=== PATIENT | female | born 1965 | race Caucasian/White ===

== ENCOUNTER 2022-06-24 13:21 | Inpatient (IN) | payer OTHER ==
[2022-06-24 13:49] VITALS: BMI 21.9
[2022-06-24] MEDS ORDERED: ONDANSETRON *ODT* 4 MG TABLET SL PRN (18:12)
[2022-06-24] MEDS ORDERED: P-EPHED 60MG/TRIPROLIDI 2.5MG TABLET PO PRN (18:12)
[2022-06-24] MEDS ORDERED: hydrOXYzine PAMOATE 25 MG CAPSULE (FP) PO PRN (18:12)
[2022-06-24] MEDS ORDERED: LOPERAMIDE HCL 2 MG CAPSULE PO PRN (18:12)
[2022-06-24] MEDS ORDERED: MAG HYDROX/AL HYDROX/SIMETH 30 ML UNIT-DOSE CUP PO PRN (18:12)
[2022-06-24] MEDS ORDERED: ACETAMINOPHEN 325 MG TABLET (FP) PO PRN (18:12)
[2022-06-24] MEDS ORDERED: IBUPROFEN 400 MG TABLET (FP) PO PRN (18:12)
[2022-06-24] MEDS ORDERED: NALOXONE HCL (KLOXXADO) 8 MG SPRAY NS PRN (18:12)
[2022-06-24] MEDS ORDERED: DICYCLOMINE HCL 10 MG CAPSULE PO PRN (18:12)
[2022-06-24] MEDS ORDERED: NICOTINE 10 MG CARTRIDGE (INHALER) IH PRN (18:12)
[2022-06-24] MEDS ORDERED: guaiFENesin 600 MG TABLET.ER (FP) PO PRN (18:12)
[2022-06-24] MEDS ORDERED: METHOCARBAMOL 500 MG TABLET PO PRN (18:12)
[2022-06-24] MEDS ORDERED: NICOTINE POLACRILEX 2 MG GUM BUC PRN (18:12)
[2022-06-24] MEDS ORDERED: BENZOCAINE/MENTHOL (CHLORASEPTIC ) LOZENGE MM PRN (18:12)
[2022-06-24] MEDS ORDERED: NALOXONE HCL 0.4 MG/ML VIAL IM PRN (18:12)
[2022-06-24] MEDS ORDERED: BENZONATATE 200 MG CAPSULE PO PRN (18:12)
[2022-06-24] MEDS ORDERED: MAGNESIUM HYDROX 2400MG/30ML ORAL SUSPENSION 30 ML CUP PO PRN (18:12)
[2022-06-24] MEDS ORDERED: POLYETHYLENE GLYCOL (HEALTHYLAX) 3350 17 GM PACKET PO PRN (18:12)
[2022-06-24] MEDS ORDERED: hydrOXYzine PAMOATE 50 MG CAPSULE (FP) PO ONE (18:17)
[2022-06-24] MEDS ORDERED: hydrOXYzine PAMOATE 25 MG CAPSULE (FP) PO ONE (18:18)
[2022-06-24] MEDS: IBUPROFEN 600 MG TABLET (FP) PO PRN (20:24)
[2022-06-24] MEDS ORDERED: MELATONIN 5 MG TABLETS PO SCH (22:00)
[2022-06-24] MEDS: THIAMINE HCL 100 MG TABLET (FP) PO SCH (22:13)
[2022-06-24] MEDS: levETIRAcetam 500 MG TABLET (FP) PO SCH (22:43)
[2022-06-25] MEDS: BISMUTH SUBSALICYLATE 524 MG/30 ML PO PRN ×2 (04:45→22:30)
[2022-06-25] MEDS ORDERED: MELATONIN 5 MG TABLETS PO SCH (08:58)
[2022-06-25 09:36] LABS: POTASSIUM 4.2 mmol/L (3.5-5.1)
[2022-06-25 09:37] LABS: CALCIUM 8.7 mg/dL (8.5-10.1)
[2022-06-25 09:38] LABS: ALBUMIN 2.7 g/dl (3.4-5.0); BLOOD UREA NITROGEN 36.9 mg/dL (7-18)
[2022-06-25 09:41] LABS: CREATININE 1.4 mg/dL (0.55-1.3)
[2022-06-25 09:43] LABS: BILIRUBIN,TOTAL 0.1 mg/dL (0.2-1)
[2022-06-25 09:44] LABS: HEMATOCRIT 35.3 % (32.4-45.2); HEMOGLOBIN 11.9 GM/dL (10.7-15.3); MCH 28.9 pg (25.7-33.7); MCHC 33.7 g/dl (32.0-36.0); MEAN CELL VOLUME 85.6 fl (80-96); MEAN PLT VOLUME 8.6 fl (7.5-11.1); PLATELET COUNT 317 10^3/uL (134-434); RBC 4.12 M/mm3 (3.60-5.2); RDW 14.1 % (11.6-15.6); WHITE BLOOD COUNT 12.1 K/mm3 (4.0-10.0)
[2022-06-25 09:50] LABS: EPI CELLS 6 /uL (0-25.1); HYALINE CASTS 0 /uL (0-3.1); URINE APPEARANCE TURBID; URINE BACTERIA >9,000 /uL (0-1359); URINE BILIRUBIN NEGATIVE (NEGATIVE); URINE COLOR YELLOW; URINE GLUCOSE (UA) NEGATIVE (NEGATIVE); URINE KETONE TRACE (NEGATIVE); URINE LEUK ESTERASE 2+ (NEGATIVE); URINE NITRITE NEGATIVE (NEGATIVE); URINE PROTEIN 1+ (NEGATIVE); URINE RBC 11 /uL (0-23.9); URINE UROBILINOGEN 0.2 mg/dL (0.2-1.0); URINE WBC 3366 /uL (0-25.8)
[2022-06-25] MEDS: PRENATAL VITAMINS W/ FOLIC ACID TABLET (FP) PO SCH (10:55)
[2022-06-25] MEDS: IBUPROFEN 600 MG TABLET (FP) PO PRN ×2 (10:57→22:27)
[2022-06-25] MEDS: levETIRAcetam 500 MG TABLET (FP) PO SCH ×2 (10:58→22:25)
[2022-06-25] MEDS ORDERED: SULFAMETHOXAZOLE/TRIMETHOPRIM 800MG/160MG D.S. TABLET PO SCH (11:00)
[2022-06-25 11:23] LABS: URINE CRYSTALS MODERATE URIC ACID /hpf
[2022-06-25] MEDS ORDERED: methaDONE HCL 10 MG TABLET PO SCH (13:00)
[2022-06-25] MEDS ORDERED: methaDONE HCL 40 MG DISPERSABLE TABLET PO SCH (13:07)
[2022-06-25] MEDS: methaDONE HCL 40 MG DISPERSABLE TABLET PO SCH (13:21)
[2022-06-25] MEDS: THIAMINE HCL 100 MG TABLET (FP) PO SCH (22:24)
[2022-06-25] MEDS: SULFAMETHOXAZOLE/TRIMETHOPRIM 800MG/160MG D.S. TABLET PO SCH (22:25)
[2022-06-26] MEDS: methaDONE HCL 40 MG DISPERSABLE TABLET PO SCH (06:08)
[2022-06-26] MEDS: BISMUTH SUBSALICYLATE 524 MG/30 ML PO PRN (06:14)
[2022-06-26] MEDS: IBUPROFEN 600 MG TABLET (FP) PO PRN (06:48)
[2022-06-26 09:06] VITALS: BP 109/65; PULSE 58; RESP 17; TEMP 97.7
[2022-06-26] MEDS: SULFAMETHOXAZOLE/TRIMETHOPRIM 800MG/160MG D.S. TABLET PO SCH (09:45)
[2022-06-26] MEDS: PRENATAL VITAMINS W/ FOLIC ACID TABLET (FP) PO SCH (09:46)
[2022-06-26] MEDS: levETIRAcetam 500 MG TABLET (FP) PO SCH (09:46)
[2022-06-26 09:54] LABS: BASO % 0.4 % (0-2.0); EOS % 3.7 % (0-4.5); HEMATOCRIT 32.9 % (32.4-45.2); HEMOGLOBIN 11.2 GM/dL (10.7-15.3); MCH 29.6 pg (25.7-33.7); MCHC 34.1 g/dl (32.0-36.0); MEAN CELL VOLUME 86.8 fl (80-96); MONO % 8.3 % (3.8-10.2); NEUT % 66.6 % (42.8-82.8); PLATELET COUNT 283 10^3/uL (134-434); RBC 3.79 M/mm3 (3.60-5.2); WHITE BLOOD COUNT 11.6 K/mm3 (4.0-10.0)
== END 2022-06-26 10:05 | disposition home or self-care (01) | DRG 773 ==
LOC: YASAS 13:21 → Y6N 18:14
PROVIDERS: ADMIT Allergy & Immunology; ATTEND Surgery
PROC: HZ2ZZZZ Detoxification Services for Substance Abuse Treatment (ICD-10-PCS; principal; 2022-06-24)
DX: F11.23 Opioid dependence with withdrawal (principal); F14.20 Cocaine dependence, uncomplicated; F13.20 Sedative, hypnotic or anxiolytic dependence, uncomplicated; F17.210 Nicotine dependence, cigarettes, uncomplicated; F25.9 Schizoaffective disorder, unspecified; N39.0 Urinary tract infection, site not specified; I10 Essential (primary) hypertension; J45.20 Mild intermittent asthma, uncomplicated; S62.101D Fracture of unspecified carpal bone, right wrist, subsequent encounter for fracture with routine healing; W10.8XXD Fall (on) (from) other stairs and steps, subsequent encounter; Z86.19 Personal history of other infectious and parasitic diseases; Z87.828 Personal history of other (healed) physical injury and trauma
CPT/HCPCS: 36415; 80053; 81003; 85025; 85027; 86593; 86780; C9803-CS; G0480; Q0162; U0003; U0005

== ENCOUNTER 2022-06-24 23:57 | Emergency (ER) | payer OTHER ==
[2022-06-25 00:36] VITALS: BP 110/72; PULSE 66; RESP 18; TEMP 97.8; BMI 21.9
[2022-06-25] MEDS ORDERED: MAG HYDROX/AL HYDROX/SIMETH -MYLANTA- ORAL SUSPENSION PO ONE (03:38)
[2022-06-25] MEDS ORDERED: FAMOTIDINE 20 MG TABLET ONE (03:44)
[2022-06-25] MEDS ORDERED: MAG HYDROX/AL HYDROX/SIMETH 30 ML UNIT-DOSE CUP ONE (03:44)
[2022-06-25] MEDS ORDERED: FAMOTIDINE 20 MG TABLET PO ONE (03:47)
== END 2022-06-25 03:59 | disposition home or self-care (01) ==
LOC: JER 23:57
PROC: 2W3CX1Z Immobilization of Right Lower Arm using Splint (ICD-10-PCS; principal; 2022-06-24)
DX: R22.31 Localized swelling, mass and lump, right upper limb (principal); M79.641 Pain in right hand; M25.531 Pain in right wrist; S52.601A Unspecified fracture of lower end of right ulna, initial encounter for closed fracture; W50.0XXA Accidental hit or strike by another person, initial encounter; Y92.488 Other paved roadways as the place of occurrence of the external cause
CPT/HCPCS: 73110-TC-RT-FY; 73130-TC-RT-FY; 99283-25